=== PATIENT | female | born 1985 | race Caucasian/White ===

== ENCOUNTER 2016-10-04 18:27 | Emergency (ER) | payer MEDICARE, MEDICAID ==
[~2016-10-04] VITALS: Ht 157.5 cm; Wt 47.9 kg
[~2016-10-04 18:27] MED LIST: HYDR-656 PO; MAGN400O4 PO; METO25TA6 PO; OXYC-474 PO; OXYC5TAB72 PO; PARO20TA5 PO; POLY17PO6 PO; PREN-148 PO; SCOP1PAT TD; SENN-133 PO
[2016-10-04 18:30] VITALS: BP 114/77; PULSE 80; RESP 16; O2SAT 97
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
[2016-10-04] MEDS ORDERED: 0.9% Sodium Chloride 1,000 ML IV SCH (20:40)
[2016-10-04 20:50] LABS: BASOPHILS % (AUTO) 0.2 % (0-3); EOSINOPHILS % (AUTO) 3.7 % (0-5); MONOCYTES % (AUTO) 8.3 % (4-12); Mean Corpuscular Hemoglobin 28.7 pg (27.0-35.0); Mean Corpuscular Volume 90.7 fL (81-100); NEUTROPHILS % (AUTO) 55.1 % (40-74); Platelet Count 185 bil/L (150-400)
[2016-10-04 21:05] LABS: APPEARANCE,URINE CLEAR (CLEAR,HAZY); COLOR,URINE STRAW (YELLOW)
[2016-10-04 21:06] LABS: OCCULT BLOOD,URINE TRACE (NEGATIVE); UROBILINOGEN,URINE NORMAL (NORMAL)
[2016-10-04 21:22] LABS: Magnesium 2.3 mg/dL (1.6-2.6)
[2016-10-04 22:40] VITALS: BP 109/48; PULSE 78; RESP 20; O2SAT 100
[2016-10-04] MEDS ORDERED: Ketorolac 30 mg/mL 2 mL Inj IM ONE (23:30)
[2016-10-05] MEDS ORDERED: Sodium Chloride LOK Flush 10 mL Syringe IVFLUSH SCH (00:30)
[2016-10-05 00:53] VITALS: BP 105/44; PULSE 58; RESP 16; O2SAT 98
== END 2016-10-05 00:55 | disposition home or self-care (01) ==
LOC: SED 18:27
DX: N76.0 Acute vaginitis (principal); R63.8 Other symptoms and signs concerning food and fluid intake; R11.10 Vomiting, unspecified; I10 Essential (primary) hypertension; J44.9 Chronic obstructive pulmonary disease, unspecified; F17.200 Nicotine dependence, unspecified, uncomplicated; Z88.4 Allergy status to anesthetic agent; Z88.5 Allergy status to narcotic agent; Z88.8 Allergy status to other drugs, medicaments and biological substances
CPT/HCPCS: 36415; 80053; 81000; 81002; 83735; 84443; 84702; 85025; 87086; 87491; 87591; 93005; 96360; 96372; 99285; J1885; J7030

== ENCOUNTER 2016-10-29 07:37 | Observation (INO) | payer MEDICARE, MEDICAID ==
[2016-10-29] VITALS (10 sets, daily range): BP systolic 81–105; BP diastolic 39–62; PULSE 53–64; RESP 16–22; O2SAT 96–100
[~2016-10-29] VITALS: Ht 157.5 cm; Wt 51.8 kg
[2016-10-29] MEDS ORDERED: 0.9% Sodium Chloride 1,000 ML IV ONE ×3 (07:53→12:55)
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
[2016-10-29] MEDS ORDERED: Ondansetron 2 mg/mL 2 mL Inj IVPUSH PRN ×3 (07:55→13:10)
[2016-10-29 08:19] LABS: BASOPHILS % (AUTO) 0.2 % (0-3); EOSINOPHILS % (AUTO) 4.5 % (0-5); MONOCYTES % (AUTO) 10.5 % (4-12); Mean Corpuscular Hemoglobin 29.4 pg (27.0-35.0); NEUTROPHILS % (AUTO) 60.4 % (40-74); Platelet Count 172 bil/L (150-400)
--- NOTE | 2016-10-29 11:37 | DRSVH ---
PROCEDURE: X-RAY CHEST ONE VIEW, PORTABLE ([id number]) INDICATIONS: recurrent syncope TECHNIQUE: One view of the chest was acquired. COMPARISON: [facility], CR, XR ABD ACUTE SERIES 3VW, 06/25/2016, 18:21. [facility], CR, XR CHEST 2VW, 07/18/2015, 16:29. [facility], CR, CHEST 2VW, 07/31/2014, 15 :56. FINDINGS: Surgical changes and devices: None. Lungs and pleura: No pleural effusions or pneumothorax. Lungs are free of pneumonia or and the lung volumes are large. Over the right chest there are multiple electrode leads coiled, and a possible r ounded mass lesion measuring up to 1.5 cm is seen in this area Mediastinum: Mediastinal contours appear normal. Heart size is normal. Bones and chest wall: No suspicious bony lesions. Overlying soft tissues appear unremarkable. IMPRESSION: 1. Possible 1.5 cm mass lesion right mid lung. However, this is in an area of multiple coiled elect rode leads and possibly could be an external foreign body. Please repeat the chest plain film imagin g utilizing PA and lateral chest technique. The likelihood of a malignant mass in a young patient [place] as this is low but not 0. 2. Large lung volumes, possible underlying asthma in this clinical circumstance. Dictated by: Ed Guidry M.D. on 10/29/2016 at 11:32 Approved by: Ed Guidry M.D. on 10/29/2016 at 11:34
--- NOTE | 2016-10-29 11:43 | DRSVH ---
PROCEDURE: CT BRAIN WITHOUT CONTRAST ([id number]) INDICATIONS: recurrent syncope and hyptension TECHNIQUE: Noncontrast 4.5 mm thick angled axial sections acquired from the foramen magnum to the vertex, with c oronal reformats. COMPARISON: [facility], CT, BRAIN W/O CONTRAST, 09/04/2014, 20:25. FINDINGS: Image quality: Excellent. CSF spaces: Basal cisterns are patent. No extra-axial fluid collections. Ventricles are normal in size and shape. Brain: No midline shift. No intracranial masses or hemorrhage. Whitfield-white matter interface is norm al. Skull and face: Calvarium and visualized facial bones are intact, without suspicious lesions. Sinuses: Visualized sinuses and mastoids are clear. IMPRESSION: Source of syncopal episode is not seen. No trauma found. Dictated by: Ed Guidry M.D. on 10/29/2016 at 11:40 Approved by: Ed Guidry M.D. on 10/29/2016 at 11:41
--- NOTE | 2016-10-29 11:51 | DRSVH ---
PROCEDURE: CT ABDOMEN AND PELVIS WITH CONTRAST ([id number]) INDICATIONS: recurrent syncope and hyptension TECHNIQUE: After the administration of intravenous contrast, 5 mm thick sections acquired from the diaphragm to the symphysis. 5 mm coronal and sagittal reformats were acquired. For radiation dose reduction, the following was used: automated exposure control, adjustment of mA and/or kV according to patient siz e. COMPARISON: [facility], CT, CT ABD PELVIS W CON, 05/12/2015, 14:08. [facility] al, CT, ABD/PELVIS W/CON (PNL), 08/07/2014, 22:48. [facility], CT, ABD/PELVIS W/CON (PNL ), 09/07/2012, 13:58. [facility], CT, CT ABD PELVIS W CON, 06/25/2016, 19:59. FINDINGS: Image quality: Excellent. ABDOMEN: Lung bases: Lung bases are clear. Heart size is normal. Solid organs: Liver and spleen are normal in size and enhancement except for a small subcapsular rig ht hepatic dome hypodensity in an area previously identified during CT scanning 06/25/16 and appears less evident, and likely slightly smaller in size. No new liver lesion has developed. Gallbladder a ppears normal. Biliary system is non dilated. Pancreas enhances normally. No adrenal nodules. Kid neys demonstrate normal size and enhancement, without hydronephrosis. Peritoneum and bowel: Bowel loops demonstrate normal wall thickness and caliber, but the colon appea rs somewhat prominently fluid-filled to the degree that enteritis may be present, including extending into the rectum. No free fluid or air. Nodes and vessels: No retroperitoneal or mesenteric adenopathy by size criteria. Aorta and inferior vena cava are normal in size. Miscellaneous: No ventral hernias. PELVIS: Genitourinary: Bladder wall thickness is normal. A previously present IUD has been removed. Qualit y of visualization of the uterus is limited by CT scanning and followup assessment by ultrasound may be warranted Miscellaneous: No inguinal hernias or adenopathy. Bones: No suspicious bony lesions. No vertebral body compression fractures. IMPRESSION: 1. Fluid filled colon loops are present on the right and at the sigmoid and rectum area-enteritis wo uld be suspected based on this appearance but there is no associated colonic wall thickening. Please correlate clinically. 2. Interval removal of an IUD previously present in June of last year. 3. Quality of visualization of the uterus is quite limited by CT scanning, and if there is signs and symptoms of endometritis or ovarian pathology followup by pelvic MR or ultrasound scanning may be wa rranted. However, no free fluid within the peritoneal space is found. Dictated by: Ed Guidry M.D. on 10/29/2016 at 11:41 Approved by: Ed Guidry M.D. on 10/29/2016 at 11:49
[2016-10-29] MEDS ORDERED: Polyethylene Glycol (PEG) 17 Gm Powder PO PRN ×2 (13:10)
[2016-10-29] MEDS ORDERED: Alum-Mag Hydrox-Simeth 30 mL Suspension PO PRN ×2 (13:10)
[2016-10-29] MEDS ORDERED: BUPR150T8 PO (13:19)
[2016-10-29] MEDS ORDERED: ALPR0.5T8 PO (13:25)
[2016-10-29] MEDS ORDERED: SUMA25TA3 PO (13:25)
[2016-10-29] MEDS ORDERED: ALBU18HF INHALATION (13:25)
--- NOTE | 2016-10-29 14:48 | NUR ---
Social work Note - brief Note Imani Roe is a 31 yr old admitted for syncope, diarrhea. EMR reviewed: Pt has Medicare and [facility] insurance, Her PCP is Dr. Kay. Pt lives at home with her mother and children. She is single, on disability. Pt is independent at baseline, drives. Remote hx of drug use, no current dependence identified. Pt will likely return home with support of family when medically cleared. 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 Plan: Home with mother in [place]
--- NOTE | 2016-10-29 17:22 | DRSVH ---
[facility] [address] [place] [address] Echocardiogram Report Name: TYRELL MANCIA DStudy Date: Height: 62 in Hospital Exam Location: [facility] Weight: 104 lb Gender: Female BSA: 1.4 m2 : 1985 Age: 31 yrs BP: 96/54 mmHg Reason For Study: RECURRENT SYNCOPE Ordering Physician: HOSPITALIST [facility] Performed By: Pilar Olvera Referring Physician: Mykel Preciado Interpretation Summary The left ventricle is normal in size, wall thickness, and systolic function without any focal wall motion abnormalities with the ejection fraction visually estimated to be 55-60%. The transmitral spectral Doppler flow pattern is normal for age. There has been no significant change since the previous study. The right ventricle is at the upper limits of normal in size and right ventricular systolic function is at the lower limits of normal but both appear unchanged compared to the previous study. The right ventricular systolic pressure is estimated at 25-30 mmHg assuming a right atrial pressure of 3-8 mm Hg, and may be slightly higher compared to the previous study. The IVC is small but collapses less than 50% with a sniff, suggesting a right atrial pressure of 3-8 mm Hg. Both atria are normal in size with an intact interatrial septum with no evidence for an atrial septal defect by 2D imaging, color flow Doppler, or injection of contrast documented with no evidence for an interatrial shunt. There is no significant valvular heart disease. There has been no significant change since the previous study. Procedure: A two-dimensional transthoracic echocardiogram with color flow and Doppler was performed. Comparison is made with the echocardiogram of 10/21/2015. A saline contrast injection was performed to assess for cardiac shunting. The patient had occasional PVCs during the exam. The patient was in sinus bradycardia with heart rates between 38-60 bpm during the exam. Left Ventricle: The left ventricle is normal in size, wall thickness, and systolic function without any focal wall motion abnormalities. The ejection fraction is estimated to be 55-60%. The transmitral spectral Doppler flow pattern is normal for age. There has been no significant change since the previous study. Right Ventricle: The right ventricle is at the upper limits of normal in size. Right ventricular systolic function is at the lower limits of normal. This is unchanged compared to the previous study. Atria: Both atria are normal in size. The interatrial septum is intact with no evidence for an atrial septal defect. There is no Doppler evidence for an interatrial shunt. Injection of contrast documented no interatrial shunt. Mitral Valve: The mitral valve leaflets appear mildly thickened, but open well. There is a flat closure plane of the the mitral valve leaflets. There is no evidence of mitral valve prolapse. There is trace mitral regurgitation. This is unchanged compared to the previous study. Aortic Valve: The aortic valve is not well visualized. The aortic valve is grossly normal. The aortic valve opens well. No aortic regurgitation is present. Tricuspid Valve: The tricuspid valve is normal in structure and function. There is trace tricuspid regurgitation. This is unchanged compared to the previous study. The right ventricular systolic pressure is estimated at 32 mmHg assuming a right atrial pressure of 8 mm Hg. This is slightly higher compared to the previous study. Pulmonic Valve: The pulmonic valve is not well seen, but is grossly normal. There is no significant valvular heart disease. Great Vessels: The aortic root is normal size. The ascending aorta is normal in size. There has been no significant change since the previous study. The IVC is of normal diameter and collapses less than 50% with a sniff. This suggests a right atrial pressure of 8 mm Hg. Pericardium/ Pleura There is no pericardial effusion. MMode/2D Measurements & Calculations LVIDd: 4.4 cm RA long axis LVOT diam LVIDs: 3.0 cm LA A2 area: 15.3 cm FS: 32.0 % LA A4 area: 18.1 cm RA area Ao root diam EPSS: 0.35 cm LA length (vol): 5.6 cm IVSd: 0.64 cm LA vol: 42.2 ml : 13.4 cm asc Aorta LVPWd: 0.75 cm LA vol index RA vol: 27.6 mlDiam: 2.4 cm RA : 19.1 mm/ IVC diam: 0.92 cm RVDd major : 7.8 cm LV rey. diameter/BSA LV sys. diameter/BSA RVD1 (basal) RVD2 (mid) (cm/m^2): 3.0 (cm/m^2): 2.1 : 2.7 cm TAPSE: 1.7 cm Doppler Measurements & Calculations Ao V2 max MV E max michel MV E/A: 2.1 TR max michel : 140.0 cm/sec : 104.5 cm/sec Med Peak E' Michel : 246.8 cm/sec Ao max PG MV A max michel TR max PG : 7.8 mmHg : 50.5 cm/sec E/E' med: 7.3 : 24.4 mmHg Ao mean PG MV P1/2t: 69.4 msec Lat Peak E' Michel PA V2 max : 66.3 cm/sec LVOT Max Michel E/E' lat: 6.8 PA mean PG : 73.7 cm/sec E/e' average: 7.1 : 0.92 mmHg ISAIAH(I,D): 1.5 cm Pulm A Revs Dur PA Accel Time sev ratio : 0.18 sec MV A dur: 0.11 sec MV dec time MV P1/2t max michel Ao V2 mean LV V1 max PG : 0.24 sec : 103.3 cm/sec Ao V2 VTI: 35.9 cm LV V1 VTI MVA(P1/2t): 3.2 cm2 : 20.1 cm ISAIAH(V,D): 1.4 cm2 PA V2 mean ISAIAH indexed to BSA Pulm Frantz Revs Dur - MV : 45.6 cm/sec (cm^2/m^2): 1.1 A Dur: 0.08 msec Reading Physician:[id number] PM
[2016-10-29] MEDS: 0.9% NaCl + KCl 20 mEq/L 1,000 ML IV SCH (18:40)
[2016-10-29] MEDS ORDERED: hydrOXYzine Pamoate 25 mg Capsule PO PRN (19:15)
[2016-10-29] MEDS ORDERED: Albuterol 2.5 mg/3 mL Inhalation Solution NEB PRN (19:20)
--- NOTE | 2016-10-29 19:21 | NUR ---
QT/QTC Changes/STAT EKG Per technical support internship, pt SB HR 50's and QT and QTC changes. STAT EKG ordered, QT 423/QTC 401 from previous EKG of QT 445/QTC 426. Dr Montgomery notified of results and he verbalized not giving PO Metoprolol to pt; passed onto NOC shift RN coming on.
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
[2016-10-29] MEDS: PARoxetine 20 mg Tablet PO SCH (21:32)
[2016-10-29] MEDS: buPROPion XL 150 mg ER24 Tablet PO SCH (21:32)
[2016-10-29] MEDS ORDERED: MetoCLOpramide 5 mg/mL 2 mL Inj IVPUSH PRN (22:10)
[2016-10-30] VITALS (9 sets, daily range): BP systolic 11–117; BP diastolic 54–76; PULSE 55–88; RESP 16–20; O2SAT 97–99
--- NOTE | 2016-10-30 05:10 | NUR ---
Nausea/ /BM/Activity pt c/o nausea. while awaiting an order of Reglan, pt fall in sleep, not awake for voice. after an 1 1/2hr, pt still sleepy, but state " I'm okay now, I don't need it." pt had watery stool x1 earlier in the shift. awaiting to collect stool sample. pt has ambulated to the rest room x1 with SBA, gait was steady, no dizziness, or lightheadedness. Bed is locked and in low position. will continue to monitor.
[2016-10-30 06:17] LABS: BASOPHILS % (AUTO) 0.3 % (0-3); EOSINOPHILS % (AUTO) 5.4 % (0-5); MONOCYTES % (AUTO) 11.5 % (4-12); Mean Corpuscular Hemoglobin 28.9 pg (27.0-35.0); Mean Corpuscular Volume 87.6 fL (81-100); NEUTROPHILS % (AUTO) 37.8 % (40-74); Platelet Count 157 bil/L (150-400)
[2016-10-30] MEDS: 0.9% NaCl + KCl 20 mEq/L 1,000 ML IV SCH ×3 (06:26→17:31)
[2016-10-30 06:37] LABS: Magnesium 1.9 mg/dL (1.6-2.6); Phosphorus 3.2 mg/dL (2.5-4.9)
[2016-10-30] MEDS: Multivit-Miner-Folic Acid-Iron Tablet PO SCH (07:58)
--- NOTE | 2016-10-30 08:36 | NUR ---
Tele Per surveillance technician, pt had 9 beats of vtach at 0820 when arriving back from [facility]. Pt c/o some "dizziness". BP 108/63, HR SR in 80s after beats of vtach, spo2 98%, temp 36.6, RR 24. Placed on 2L NC for pt comfort. Chest "sore" Per micro, pt positive for candido virus in stool. MD lee paged to notify at 0834. aware at 0840 and will review. Pt to be placed on contact precautions.
--- NOTE | 2016-10-30 08:40 | DRSVH ---
PROCEDURE: X-RAY CHEST, TWO VIEWS ([id number]) INDICATIONS: Syncope?Possible Aspiration with Infiltrate TECHNIQUE: 2 views of the chest were acquired. COMPARISON: [facility], CR, XR CHEST 1VW (PORTABLE), 10/29/2016, 10:39. [facility], CR, XR CHEST 2VW, 07/18/2015, 16:29. FINDINGS: Surgical changes and devices: None. Lungs and pleura: No pleural effusions or pneumothorax. Lungs are clear. Mediastinum: Mediastinal contours are normal. Heart size is normal. Bones and chest wall: No suspicious bony abnormalities. Soft tissues appear unremarkable. IMPRESSION: An area of possible mass lesion right midlung is seen by this followup study to be normal , and elsewhere throughout the lung parenchyma and no abnormality is seen. No pneumonia found. Dictated by: Ed Guidry M.D. on 10/30/2016 at 8:38 Approved by: Ed Guidry M.D. on 10/30/2016 at 8:39
[2016-10-30] MEDS ORDERED: MeTOProlol XL 25 mg ER24 Tablet PO SCH (08:50)
--- NOTE | 2016-10-30 10:47 | NUR ---
Arnaldo GRIFFIN aware that pt has been seen by cardiology and restarted on metoprolol. RN has notified tele to monitor for any bradycardia.
--- NOTE | 2016-10-30 10:56 | CONS ---
[address] [address] CONSULTATION REPORT PATIENT: TYRELL MANCIA : 1985 MR#: [id number] ADMIT: 10/29/2016 JOB ID: [id number] DATE OF SERVICE: 10/30/2016 CARDIOLOGY CONSULTATION: IDENTIFICATION: Dr. Montgomery has asked that I consult on this 31-year-old female admitted with syncope and a history of ventricular tachycardia. HISTORY: Her history dates back to 2011 when she had multiple ED visits with palpitations and lightheadedness with associated abdominal pain with a history of multiple abdominal surgeries. An echocardiogram in August 2012 was normal. However, a Zio patch showed a 12 second run of nonsustained monomorphic VT at 218 BPM and she was started on metoprolol 25 mg b.i.d., and was referred to Dr. Preciado, who has followed her since then. There is a family history of long QT syndrome with a family member requiring ICD placement and the patient underwent an epinephrine challenge that was positive for paradoxical prolongation of her QT, although genetic testing showed no evidence for any established long QT genetic abnormality. She continued to have episodes of presyncope although none were able to be captured on a Holter monitor. The monomorphic nature of her ventricular tachycardia was not consistent with a long QT syndrome and it was felt more likely to be an outflow tract ventricular tachycardia and an ICD was considered but given her petite size it was felt that an EP study should be performed to evaluate for inducible ventricular arrhythmias. This was scheduled but ultimately deferred because of an unplanned and she was treated with metoprolol and had an uneventful delivery in November of 2013. An electrophysiologic study was eventually completed in March of 2014 and was completely normal without any inducible arrhythmia and, therefore, no ICD was placed and she was simply maintained on beta blockade and has been followed by Dr. Preciado. At her followup in May 2015, she had reverted back to alcohol and marijuana substance abuse and had her daughter removed by CPS with corresponding increased stress and worsening of her palpitations with reported lightheadedness, but without any syncope. An event monitor in October 2015 showed a five beat run of monomorphic VT but only sinus rhythm during her episodes of lightheadedness. She subsequently failed followup until her last visit in May 2016 when she was again with her third child and continued to complain of palpitations and near syncope. She was maintained on beta sophie, and was found to have chronically low blood pressures in the 90-110 range. She has not seen Dr. Preciado since then but apparently had an emergent that was again uncomplicated. She had been doing relatively well although had her third child also taken away from her by CPS with corresponding increased stress. She was seen in the emergency department on October 04, 2016 with a vaginal yeast infection and complained of a several month history of chronic nausea, vomiting, and abdominal pain. When she saw Dr. Kay in followup earlier this month, she complained of depression and self-mutilation. She presented to the emergency department yesterday after several days of abdominal pain, diarrhea with nausea and vomiting and chills. She had lost control of her bowel with fecal incontinence as well as some bladder incontinence. She had lost around 13 pounds over the previous month because of her stress and lack of eating. She felt "yucky" with significant lightheadedness especially on standing with two syncopal episodes. In addition, she had noted some intermittent palpitations that were relatively brief just lasting around a minute also associated with some lightheadedness and transient dyspnea but none otherwise. She had been taking her metoprolol intermittently but stopped it yesterday. She presented to the emergency department with these symptoms and was found to have heart rates in the 50s with a blood pressure of 106/48. She was treated with IV fluid but continued to have significant postural lightheadedness. A head CT was unremarkable and an echocardiogram was obtained that showed normal left and right ventricular size and function without change from her previous echocardiogram and no evidence of valvular heart disease. Her PAT was estimated at 25-30 mmHg. Since admission she feels somewhat better although remains a somewhat reluctant historian. She has had some fleeting stabbing type chest discomfort that can be repetitive over a few minutes, but denies any other chest pain. It has never been sustained. She denies any alcohol or drug abuse over the last several years. Telemetry demonstrated a nine beat run of relatively monomorphic VT early this morning but otherwise there has been no other arrhythmia. PAST MEDICAL HISTORY: Notable for a longstanding history of anxiety, depression, anorexia and bulimia. She has had multiple abdominal surgeries for apparent bowel incarceration. She has a history of asthma and GERD. HOME MEDICATIONS: 1. Metoprolol 12.5 mg t.i.d. 2. Paroxetine 40 mg daily. 3. Alprazolam 0.5 mg daily. 4. Wellbutrin 150 mg b.i.d. 5. vitamins. ALLERGIES: ASPIRIN, FENTANYL and MIDAZOLAM. FAMILY HISTORY: As above. There is some family history of ventricular arrhythmias but no other cardiac history. Mother at age 32 from alcoholism. SOCIAL HISTORY: The patient lives alone in [facility], but visits her children who reside with their father. She was smoking but quit two weeks ago. REVIEW OF SYSTEMS: A complete review is performed and is notable for the absence of any recent fevers, although she describes some chills. Weight loss is described above. She describes some progressive nighttime vision loss but nothing acute. Denies any ENT problems except for a recent sore throat. She has had a recent cough that she has attributed to an URI but it has been nonproductive without any hematemesis. No history of any peptic ulcer disease or GI blood loss. No genitourinary complaints or hematuria. Denies any unusual musculoskeletal complaints or focal neurologic symptoms. No established bleeding disorder although she states that she "has a hard time clotting." PHYSICAL EXAMINATION: Quiet, petite, middle-aged female in no distress with a fairly flat affect. Vital signs: HR 73, BP 117/76, O2 saturation 98% on room air. She has received now over 3 L of IV fluid. Her weight is 51.8 kg. Skin: Warm and dry. HEENT: EOMI without arcus. She has fairly good dentition. Lungs: Clear bilaterally to auscultation and percussion without any rales or wheeze. CV: Nonpalpable PMI with a normal S1 and S2 with a 1/6 systolic murmur at the left upper sternal border, but none otherwise. No gallops or rubs. There is no obvious JVP. Carotid pulses are 2+ bilaterally with a normal upstroke and without bruit. Dorsalis pedis and posterior tibial pulses are 2+ bilaterally. Abdomen: Nondistended with mild diffuse tenderness with active bowel tones but no bruits. No obvious hepatosplenomegaly. Extremities: Warm without clubbing, cyanosis or edema. Neuro: Moves all four extremities. Psych: Awake, alert, and oriented with a flat affect but otherwise normal. LABORATORY: White count this morning is 3.5 with a hematocrit of 37% down from 41% after hydration. Her potassium on admission was 4.0 with a magnesium of 2.0 and this morning is 1.9. BUN is 8 with a creatinine of 0.6. LFTs are normal. No tox screen was performed. Her most recent TSH was three weeks ago and was 0.45. Chest x-ray: Shows normal cardiac size with clear lung abraham. Her ECG on admission showed sinus rhythm with low-voltage QRS with somewhat delayed R-wave progression likely due to lead placement, as her follow up ECG was normal. Notably, her QT is normal with a corrected QT of 401 msec. IMPRESSION: 1. Recurrent syncope. I think this is quite clearly secondary to her volume depletion from her diarrhea, abdominal discomfort and lack of oral intake. I see no role of her ventricular tachycardia or bradycardia seen on admission as playing any significant role in this given the postural nature of her syncope. As such, I would continue with vigorous fluid hydration and nutritional supplementation. A psychiatric consult may be in order to help with her eating disorder. 2. History of nonsustained ventricular tachycardia. It is not clear whether she has been symptomatic from her ventricular tachycardia or not. Her normal LV systolic function and benign EP study that showed no inducible VT are reassuring. At this point, I would simply restart her metoprolol at 12.5 mg t.i.d. and adjust as needed. I would continue her metoprolol even if she was bradycardic into her 50s. It will be important to maintain her potassium greater than 4.0 and a magnesium greater than 2.0. 3. History of substance abuse and psychiatric disorder. A tox screen and a psychiatric evaluation may be appropriate but I will defer this to the hospitalist. 4. Abdominal pain with diarrhea. Apparently she has been found to have a virus in her stool which may account for her gastrointestinal issues but again this will be deferred to the hospitalist for treatment. RECOMMENDATIONS: 1. Resume metoprolol at 12.5 mg three times daily regularly with instructions at discharge to take on a persistent basis. I would hold only for profound bradycardia or documented hypotension after adequate repletion of her volume. 2. Continue to monitor her heart rate and rhythm during her hospitalization and make any correlation with symptoms. 3. The patient should followup with Dr. Preciado as an outpatient within the next month. At this point, as long as she has no further concerning arrhythmias, I will sign off. If she has any more prolonged episodes of arrhythmia or documented symptomatic episodes due to her arrhythmia, please let me know. Otherwise, we will not plan on seeing her in followup. I have spent over 120 minutes reviewing the patient's medical record, interviewing the patient, answering her questions and documenting such. SARAH
--- NOTE | 2016-10-30 11:16 | NUR ---
Social Work: Initial Assessment D: Per EMR review, pt is a 31 year old female admitted for passing out. Pt is Medicare with [facility] supplement; Pt has no LTC insurance or VA benefits. PCP is Miguel Kay DO. NOK is Yesi Friedman, mother, . Advanced directives completed with imaging scheduler but not on file. Readmit score not entered at this time. SAP BUSINESS ANALYST met with pt at bedside. Sw role explained. See initial assessment. Pt lives in an apartment, alone and is I with ADLS. Pt lives on the ground floor as she is not able to ambulate stairs. Pt uses no DME, has never had HH or skilled rehab and continues to drive. Pt expresses no concerns about discharge home and states her boyfriend's mother will transport her. Pt states she has three children ages 7, 3 and 4 months. Pt does not have custody of her children at this time. Pt's 7 year old child is in the care of his father. 3 year old is in state care and the 4 month old is in the care of her boyfriend. Pt is allowed court supervised visits with the children. SAP BUSINESS ANALYST informed pt that hospital staff are mandated reporters and if children visit the hospital without court approved supervision, social work would be legally obligated to report the information to CPS. She states that she understands and that the children will not be visiting her during hospitalization. staff occupational therapist and MD have been updated and instructed to notify Social Work if pt's children are seen visiting without court supervision. A: Pt who is I at baseline. P: Anticipate pt to discharge home via POV once medically stable; SAP BUSINESS ANALYST to continue to follow and assist with safe discharge planning if needs arise. DIPIKA Amador Addendum: 10/30/16 at 1122 by IVANA SANDERSON Amended: Links added.
--- NOTE | 2016-10-30 14:52 | NUR ---
Pain MD lee paged at 0820 and notified that pt is c/o DELONG 8/10 pain that began about 30 minutes ago. Is requesting Tylenol. Pt states history of migraines.
--- NOTE | 2016-10-30 15:52 | NUR ---
Isolation Pt placed in isolation from prior roommate at 1415, as soon as was possible.
--- NOTE | 2016-10-30 16:30 | NUR ---
Shower Per MD, pt to not come off tele for shower as pt had beat of vtach in am.
--- NOTE | 2016-10-30 16:41 | NUR ---
Tele/meds MD notified that per child monitor, HR has been 55-70s and 1600 BP 97/54 while pt is still on IV fluids. Per MD request, to hold 1630 dose of metoprolol.
[2016-10-30] MEDS: PARoxetine 20 mg Tablet PO SCH (20:18)
[2016-10-30] MEDS: buPROPion XL 150 mg ER24 Tablet PO SCH (21:10)
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
[2016-10-31] VITALS (9 sets, daily range): BP systolic 104–125; BP diastolic 53–66; PULSE 51–81; RESP 14–18; O2SAT 97–100
[2016-10-31] MEDS: 0.9% NaCl + KCl 20 mEq/L 1,000 ML IV SCH ×2 (03:38→15:46)
--- NOTE | 2016-10-31 05:37 | NUR ---
Activity pt ambulated multiple times to the restroom with SBA; gait steady. Denies dizziness/lightheadedness. BP 111/59, p 69; 107/59, p 67; and 106/63.p 59. Administered schedule Metoprolol. no C/O pain/N/V/D. will continue to monitor.
[2016-10-31 06:54] LABS: BASOPHILS % (AUTO) 0.6 % (0-3); EOSINOPHILS % (AUTO) 6.9 % (0-5); MONOCYTES % (AUTO) 9.9 % (4-12); Mean Corpuscular Hemoglobin 29.1 pg (27.0-35.0); Mean Corpuscular Volume 90.8 fL (81-100); NEUTROPHILS % (AUTO) 36.5 % (40-74); Platelet Count 141 bil/L (150-400)
[2016-10-31 07:30] LABS: Magnesium 1.9 mg/dL (1.6-2.6); Phosphorus 3.2 mg/dL (2.5-4.9)
[2016-10-31] MEDS: Pantoprazole 40 mg ER24 Tablet PO SCH (08:56)
[2016-10-31] MEDS: Multivit-Miner-Folic Acid-Iron Tablet PO SCH (08:56)
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
[2016-10-31] MEDS: buPROPion XL 150 mg ER24 Tablet PO SCH (21:32)
[2016-10-31] MEDS: PARoxetine 20 mg Tablet PO SCH (21:33)
[2016-11-01] VITALS (7 sets, daily range): BP systolic 52–116; BP diastolic 59–67; PULSE 55–88; RESP 18–20; O2SAT 90–99
[2016-11-01] MEDS: 0.9% NaCl + KCl 20 mEq/L 1,000 ML IV SCH ×2 (01:34→11:13)
--- NOTE | 2016-11-01 05:03 | NUR ---
Activity/Metoprolol Held Pt up to BR with IV assistance, otherwise independent, steady on feet. Denies dizziness. 0030 dose of metoprolol held due to bradycardia: HR 51, BP 110/63. Hourly rounding, call light within reach.
[2016-11-01 07:14] LABS: BASOPHILS % (AUTO) 0.2 % (0-3); EOSINOPHILS % (AUTO) 7.4 % (0-5); MONOCYTES % (AUTO) 10.1 % (4-12); Mean Corpuscular Hemoglobin 28.9 pg (27.0-35.0); Mean Corpuscular Volume 90.3 fL (81-100); NEUTROPHILS % (AUTO) 39.3 % (40-74); Platelet Count 165 bil/L (150-400)
[2016-11-01] MEDS: Multivit-Miner-Folic Acid-Iron Tablet PO SCH (09:43)
[2016-11-01] MEDS: Pantoprazole 40 mg ER24 Tablet PO SCH (09:44)
--- NOTE | 2016-11-01 10:51 | PROCED ---
[address] [address] EEG PATIENT: TYRELL MANCIA : 1985 MR#: [id number] ADMIT: 10/29/2016 JOB ID: [id number] DATE OF SERVICE: 10/29/2016 HISTORY: The patient is a 31-year-old woman with episodes of altered consciousness. TECHNICAL DESCRIPTION: This digital EEG was recorded using 25 scalp and ear, and two EKG electrodes. It was reviewed in bipolar and referential montages following reformatting in the 10-20 international Electrode Placement System. During the recording, the patient was noted to be awake, drowsy, and asleep. The background was composed of an 8.5-9 hertz, 20/50 microvolt symmetrical and reactive posterior dominant rhythm that attenuated with eye opening. The rest of the background was composed of low voltage faster frequencies. There were no focal, lateralized, or epileptiform discharges noted. There were no seizures seen. Sleep was characterized by the attenuation of the alpha rhythm, the appearance of symmetrical vertex waves, heralding stage 1 of sleep. This is followed by the development of symmetrical sleep spindles and K complexes, heralding stage 2 of sleep. The EKG rhythm strip revealed a heart rate of 60-80 beats per minute with no apparent arrhythmias. IMPRESSION: This EEG performed in the awake, drowsy, and asleep states is within normal limits. Clinical correlation is advised. MTDD
--- NOTE | 2016-11-01 11:00 | NUR ---
Jacob James MD, office returned call and made aware of need for EEG results. They will notify Dr Valentina GRIFFIN took the call from the office.
[2016-11-01] MEDS ORDERED: MeTOProlol XL 25 mg ER24 Tablet PO SCH (12:55)
--- NOTE | 2016-11-01 13:03 | PCM.DIMED ---
Discharge Instructions Date of Service Nov 01, 2016 Dates of Hospitalization Oct 29, 2016 at 13:50 Discharge Diagnosis Discharge Diagnosis Gastroenteritis with Astrovirus, with severe dehydration and syncope Diet Heart Healthy Activity No restrictions Call your provider Fever or Chills, Shortness of breath, Bleeding, Chest pain, Vomitting, Excessive diarrhea, Weakness (unilateral) Patient Instructions Follow-up Provider: Steve Lorenzana PA-C Follow-up with PCP in: 1 week Provider: Mykel Preciado MD Follow-up in: 2 weeks (For Cardiology follow up) Bharathi Montgomery MD Nov 01, 2016 13:03
[2016-11-01] MEDS ORDERED: METO25TA99 PO (13:07)
--- NOTE | 2016-11-01 13:38 | NUR ---
Social Work Note Discharge Note: D/A: The Pt is a 31 y/o female that was admitted on 10/29/16 under observation status for passing out as per EMR. The Pt is ambulating in room. The Pt was seen by SW on 10/30, CPS is involved with the Pt's children. She is allowed only court visit supervision with her three children. See note for specifics. No additional SW needs identified at this time. SW to follow if needs arise. P: Pt to be discharged home today via POV. No additional SW needs identified at this time. DIPIKA Mcqueen Coach DIPIKA Willoughby
--- NOTE | 2016-11-01 18:53 | NUR ---
Discharge Dr Montgomery notified of f/up BP after metoprolol dose. Confirmed ok to discharge. Awaiting mom to come and drive her home. Addendum: 11/01/16 at 1916 by PALAK MARTI RN Reviewed DC instruction with patient, family. Stated understanding. [place] able to ambulate to private vehicle to home with family (family member came in with nausea - emesis bag provided.) Addendum: 11/01/16 at 1924 by PALAK MARTI RN Pt ambulated to private vehicle to home with family. All belongings taken.
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
== END 2016-11-01 19:20 | disposition home or self-care (01) ==
LOC: SED 08:19 → MOC 13:50
PROVIDERS: ADMIT Internal Medicine Infectious Disease; ATTEND Internal Medicine Infectious Disease
DX: A08.32 Astrovirus enteritis (principal); E86.0 Dehydration; R55 Syncope and collapse; I47.2 Ventricular tachycardia; F10.21 Alcohol dependence, in remission; F15.21 Other stimulant dependence, in remission; F32.9 Major depressive disorder, single episode, unspecified; F41.9 Anxiety disorder, unspecified; Z87.891 Personal history of nicotine dependence
CPT/HCPCS: 36415; 70450; 71010; 71020; 74177; 80053; 81025; 83690; 83735; 84100; 84134; 85025; 86140; 87507; 90791; 93005; 94640; 94664; 94799; 95816; 96360; 96361; 99285; C8929; G0378; G0480; J1650; J2270; J2405; J7030; J7613; Q9967

== ENCOUNTER 2016-12-02 19:02 | Emergency (ER) | payer MEDICARE, MEDICAID ==
[~2016-12-02] VITALS: Ht 157.5 cm; Wt 49.5 kg
[~2016-12-02 19:02] MED LIST changes: +ALBU18HF INHALATION; +ALPR0.5T8 PO; +BUPR150T8 PO; -MAGN400O4 PO; -METO25TA6 PO; +METO25TA99 PO; -OXYC-474 PO; -OXYC5TAB72 PO; -POLY17PO6 PO; -SCOP1PAT TD; +SUMA25TA3 PO
[2016-12-02 19:05] VITALS: BP 111/76; PULSE 79; RESP 16; O2SAT 98
[2016-12-02] MEDS ORDERED: 0.9% Sodium Chloride 1,000 ML IV ONE ×2 (19:25→20:07)
[2016-12-02 19:32] LABS: BASOPHILS % (AUTO) 0.2 % (0-3); EOSINOPHILS % (AUTO) 0.5 % (0-5); MONOCYTES % (AUTO) 5.6 % (4-12); Mean Corpuscular Hemoglobin 29.1 pg (27.0-35.0); NEUTROPHILS % (AUTO) 67.7 % (40-74); Platelet Count 212 bil/L (150-400)
[2016-12-02 19:55] LABS: Magnesium 2.2 mg/dL (1.6-2.6)
[2016-12-02] MEDS ORDERED: Magnesium Sulf 2 Gm/50mL Water 2 GM in IV Premix 1 EACH IV ONE (20:10)
[2016-12-02] MEDS ORDERED: MetoCLOpramide 5 mg/mL 2 mL Inj IVPUSH ONE (20:10)
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
[2016-12-02 22:23] VITALS: BP 97/40; PULSE 70; O2SAT 97
[2016-12-02] MEDS ORDERED: ONDA4TAB9 PO (23:39)
[2016-12-03 00:15] VITALS: BP 112/64; PULSE 68; RESP 14; O2SAT 98
== END 2016-12-03 00:17 | disposition home or self-care (01) ==
LOC: SED 19:02
DX: R11.2 Nausea with vomiting, unspecified (principal); J02.9 Acute pharyngitis, unspecified; M79.1 Myalgia; R05 Cough; R09.81 Nasal congestion; R42 Dizziness and giddiness; R07.89 Other chest pain; R06.02 Shortness of breath; R06.2 Wheezing; R51 Headache; F41.9 Anxiety disorder, unspecified; K21.9 Gastro-esophageal reflux disease without esophagitis; F32.9 Major depressive disorder, single episode, unspecified; I10 Essential (primary) hypertension; J45.909 Unspecified asthma, uncomplicated; J44.9 Chronic obstructive pulmonary disease, unspecified; G43.909 Migraine, unspecified, not intractable, without status migrainosus; Z86.79 Personal history of other diseases of the circulatory system; Z87.891 Personal history of nicotine dependence; Z88.6 Allergy status to analgesic agent; Z88.5 Allergy status to narcotic agent; Z88.8 Allergy status to other drugs, medicaments and biological substances
CPT/HCPCS: 36415; 80053; 81025; 83690; 83735; 85025; 87804; 96361; 96374; 96375; 99285; J1200; J1885; J2765; J7030

== ENCOUNTER 2017-05-26 03:58 | Emergency (ER) | payer MEDICARE ==
[~2017-05-26] VITALS: Ht 157.5 cm; Wt 47.7 kg
[~2017-05-26 03:58] MED LIST changes: +METO-386 PO; -METO25TA99 PO; +ONDA4TAB9 PO
[2017-05-26 04:02] VITALS: BP 117/72; PULSE 83; RESP 20; O2SAT 98
[2017-05-26 04:33] LABS: BASOPHILS % (AUTO) 0.2 % (0-3); EOSINOPHILS % (AUTO) 2.5 % (0-5); MONOCYTES % (AUTO) 8.5 % (4-12); Mean Corpuscular Hemoglobin 31.1 pg (27.0-35.0); Mean Corpuscular Volume 92.2 fL (81-100); NEUTROPHILS % (AUTO) 56.3 % (40-74); Platelet Count 167 bil/L (150-400)
[2017-05-26 04:54] LABS: Magnesium 2.1 mg/dL (1.6-2.6)
[2017-05-26] MEDS ORDERED: 0.9% Sodium Chloride 1,000 ML IV ONE (05:03)
[2017-05-26] MEDS ORDERED: Ondansetron 2 mg/mL 2 mL Inj IVPUSH PRN (05:05)
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
[2017-05-26] MEDS ORDERED: Pantoprazole 4 mg/mL 10 mL Inj IVPUSH ONE (05:50)
[2017-05-26] MEDS ORDERED: POLY17PO6 PO (05:54)
[2017-05-26] MEDS ORDERED: OMEP20CA11 PO (05:54)
[2017-05-26 06:36] VITALS: BP 118/68; PULSE 86; RESP 16; O2SAT 98
--- NOTE | 2017-05-26 08:44 | DRSVH ---
PROCEDURE: X-RAY ACUTE ABDOMINAL SERIES ([id number]) INDICATIONS: abd pain, distention TECHNIQUE: One view chest and two views of the abdomen were acquired. COMPARISON: None. FINDINGS: Surgical changes and devices: Surgical clips right lower abdomen and right pelvis. Chest: Lungs are clear. Heart size is normal. No pleural effusions. No pneumoperitoneum. Abdomen: Bowel gas pattern is abnormal with relatively prominent colonic obstipation bilaterally. N o suspicious calcifications. Visualized solid organ contours appear normal. Bones: No suspicious bony lesions. IMPRESSION: Chronic colonic obstipation bilaterally. Surgical clips at the right lower abdomen and p josiah. Dictated by: Ed Guidry M.D. on 05/26/2017 at 8:41 Approved by: Ed Guidry M.D. on 05/26/2017 at 8:42
== END 2017-05-26 06:25 | disposition home or self-care (01) ==
LOC: SED 03:58
DX: R10.13 Epigastric pain (principal); I10 Essential (primary) hypertension; Z87.891 Personal history of nicotine dependence; Z88.5 Allergy status to narcotic agent; Z88.8 Allergy status to other drugs, medicaments and biological substances
CPT/HCPCS: 36415; 74022; 80053; 81002; 81025; 83690; 83735; 85025; 96361; 96374; 96375; 99285; J1885; J2405; J7030; S0164